=== PATIENT | female | born 1985 | race African-American/Black ===

== ENCOUNTER 2017-02-17 08:08 | Emergency (ER) | payer MEDICAID ==
[~2017-02-17] VITALS: Ht 162.6 cm; Wt 100.0 kg
[~2017-02-17 08:08] MED LIST: BACT800T5 PO; CEPH-460 PO; HYDR-3533 PO
[2017-02-17 08:11] VITALS: BP 135/83; PULSE 100; RESP 20; TEMP 98; O2SAT 100
[2017-02-17] MEDS ORDERED: IBUP800T23 PO (08:29)
[2017-02-17] MEDS ORDERED: CYCL1TAB29 PO (08:29)
--- NOTE | 2017-02-17 08:29 | PD ---
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 Reports history of low back pain with muscle spasms. Denies radiation of pain. Denies paresthesias, loss of sensation, decreased range motion, decreased strength to bilateral extremities. Denies encopresis, incontinence, saddle anesthesias. Denies fever, vomiting, abdominal pain. Denies dysuria. Denies IV drug use, cancer. Has not taken any medications or tried any treatments to relieve her symptoms. Pain is aggravated with movement. No known relieving factors. No known allergies. Has no other medical complaints. No other modifying factors or associated signs and symptoms. PFSH Past Medical History Blood Disorders: No Cancer: No Cardiovascular Problems: No Diminished Hearing: No Gastrointestinal Disorders: Yes Genitourinary: No Immune Disorder: No Musculoskeletal: No Neurologic: No Psychiatric: No Reproductive: No Respiratory: No ?: Not LMP: 02/04/17 : 4 Para: 3 Miscarriage: 1 Past Surgical History Appendectomy: Yes (10/15/09) Body Medical Devices: HX IUD Other Surgery: No Social History Alcohol Use: No Tobacco Use: No Substance Use: No Allergies-Medications (Allergen,Severity, Reaction): Coded Allergies: No Known Allergies (Verified , 02/17/17) Reported Meds & Prescriptions Reported Meds & Active Scripts Active Ibuprofen 800 Mg Tab 800 Mg PO Q6HR PRN Flexeril (Cyclobenzaprine HCl) 10 Mg Tab 10 Mg PO TID PRN Review of Systems Except as stated in HPI: all other systems reviewed are Neg Physical Exam Narrative GENERAL: Well-nourished, well-developed female patient, in no acute distress; afebrile, nontoxic-appearing SKIN: Warm and dry. HEAD: Atraumatic. Normocephalic. EYES: Pupils equal and round. No scleral icterus. No injection or drainage. ENT: Mucosa pink and moist. Airway patent. NECK: Trachea midline. CARDIOVASCULAR: Regular rate. RESPIRATORY: No accessory muscle use. GASTROINTESTINAL: Obese. MUSCULOSKELETAL: Bilateral lower extremities supple and non-tense with 2+ pedal pulses and sensory intact; with full range of motion and 5/5 strength. 2 + DTRs bilaterally. Active dorsiflexion and extension of bilateral feet. Right straight leg raise is positive for low back pain. Ambulatory in room with normal gait. Sitting up in bed at 90. No obvious deformities. No clubbing. No cyanosis. No edema. BACK: No midline point tenderness on palpation of the lumbar or thoracic spine. Tenderness on palpation of bilateral lumbar paraspinal and iliosacral area; worse on right than left. No obvious deformities. NEUROLOGICAL: Awake and alert. Oriented 3. No obvious cranial nerve deficits. Motor grossly within normal limits. Normal speech. Moves all extremities. 5/5 strength to all extremities. Sensory intact. PSYCHIATRIC: Appropriate mood and affect; insight and judgment normal. Data Data Last Documented VS Vital Signs Date Time Temp Pulse Resp B/P Pulse Ox O2 Delivery O2 Flow Rate FiO2 02/17/17 08:11 98.0 100 20 135/83 100 Room Air Orders Methocarbamol (Robaxin) (02/17/17 08:30) Ibuprofen (Motrin) (02/17/17 08:30) MDM Medical Decision Making Medical Screen Exam Complete: Yes Emergency Medical Condition: Yes Medical Record Reviewed: Yes Differential Diagnosis Back strain, low back pain, muscle spasms Narrative Course 31-year-old female physical exam and history of present illness consistent with acute low back pain and low back strain. Denies encopresis, incontinence, saddle anesthesias. Denies IV drug use or cancer. No midline point tenderness on palpation of the lumbar spine. Patient is able to drain the room with normal gait. Afebrile and nontoxic-appearing. Denies fever, vomiting. Robaxin and ibuprofen administered in the ER. Flexeril and ibuprofen prescribed for home. Work release provided. Patient verbalizes understanding and agreement with treatment plan. Patient is medically cleared and stable for discharge. Discussed reasons to return to the emergency department. Instructed patient to follow up with primary care provider. Patient agrees with treatment plan. The patients vital signs are stable and the patient is stable for outpatient follow-up and treatment. Patient discharged home, stable and in no acute distress. Diagnosis Primary Impression: Low back pain Qualified Code: M54.5 - Bilateral low back pain without sciatica, unspecified chronicity Additional Impression: Low back strain Qualified Code: S39.012A - Low back strain, initial encounter Referrals: Primary Care Physician Patient Instructions: Acute Low Back Pain (ED), General Instructions, Low Back Strain (ED), Lower Back Exercises (ED) Departure Forms: Tests/Procedures, Work Release Enter return to work date: Feb 21, 2017 Additional Instructions: Tylenol or ibuprofen as directed and as needed for pain Flexeril as prescribed and as needed for muscle spasms Heating pad and/or ice to affected area to reduce pain Avoid aggravating activities; increase activity as tolerated Follow-up with primary care provider Return to emergency department immediately with worsening of symptoms Med/Other Pt SpecificInfo: Prescription(s) given Scripts Ibuprofen 800 Mg [id number] Mg PO Q6HR PRN (PAIN) #30 TAB Ref 0 Prov:Michelle Collier 02/17/17 Cyclobenzaprine (Flexeril)10 Mg Tab10 Mg PO TID PRN (MUSCLE SPASM) #30 TAB Ref 0 Prov:Michelle Collier 02/17/17 Disposition: 01 DISCHARGE HOME Condition: Stable Michelle Collier Feb 17, 2017 08:29
[2017-02-17] MEDS ORDERED: METHOCARBAMOL 500 MG TAB PO ONE (08:30)
[2017-02-17] MEDS ORDERED: IBUPROFEN 800 MG TAB PO ONE (08:30)
== END 2017-02-17 09:22 | disposition home or self-care (01) ==
LOC: NEPK 08:08
DX: S39.012A Strain of muscle, fascia and tendon of lower back, initial encounter (principal); X50.9XXA Other and unspecified overexertion or strenuous movements or postures, initial encounter; Y93.89 Activity, other specified
CPT/HCPCS: 99283

== ENCOUNTER 2017-07-28 07:31 | Emergency (ER) | payer MEDICAID ==
[~2017-07-28] VITALS: Ht 162.6 cm; Wt 100.0 kg
[~2017-07-28 07:31] MED LIST changes: -BACT800T5 PO; -CEPH-460 PO; +CYCL10TA PO; -HYDR-3533 PO; +IBUP1TAB7 PO
[2017-07-28 07:32] VITALS: BP 137/79; PULSE 91; RESP 18; TEMP 98.8; O2SAT 100
--- NOTE | 2017-07-28 07:50 | PD ---
HPI Chief Complaint: Complaint Time Seen by Provider: 07:37 Travel History International Travel<30 days: No Contact w/Intl Traveler<30days: No Traveled to known affect area: No History of Present Illness HPI 32-year-old female presents to the emergency department complaining of urinary frequency and urgency since last night. States that she had a little bit of dysuria that 2 nights ago but this has resolved. Patient denies hematuria, dysuria, malodorous urine, fever, chills, abdominal pain, pelvic pain. Denies vaginal discharge. Last menstrual period was Wednesday. Patient denies allergies to medications. States normally she has dysuria and an odor but she does not have this at this point. PFSH Past Medical History Blood Disorders: No Cancer: No Cardiovascular Problems: No Diminished Hearing: No Gastrointestinal Disorders: Yes Genitourinary: No Immune Disorder: No Musculoskeletal: No Neurologic: No Psychiatric: No Reproductive: No Respiratory: No ?: Not LMP: 07/21/17 : 4 Para: 3 Miscarriage: 1 Past Surgical History Appendectomy: Yes (10/15/09) Body Medical Devices: HX IUD Other Surgery: No Social History Alcohol Use: No Tobacco Use: No Substance Use: No Allergies-Medications (Allergen,Severity, Reaction): Coded Allergies: No Known Allergies (Verified Adverse Reaction, Unknown, 07/28/17) Reported Meds & Prescriptions Reported Meds & Active Scripts Active Metrogel Vaginal Gel (Metronidazole Vaginal Gel) 0.75 % Gel 1 Appl VAGINAL HS 10 Days Macrobid (Nitrofurantoin Monoh/Nitrofur Macro) 100 Mg Cap 100 Mg PO BID 7 Days Ibuprofen 800 Mg Tab 800 Mg PO Q6HR PRN Flexeril (Cyclobenzaprine HCl) 10 Mg Tab 10 Mg PO TID PRN Review of Systems Except as stated in HPI: all other systems reviewed are Neg Physical Exam Narrative GENERAL: Well-developed well-nourished in no apparent distress SKIN: Focused skin assessment warm/dry. HEAD: Atraumatic. Normocephalic. EYES: No scleral icterus. No injection or drainage. ENT: No nasal bleeding or discharge. NECK: Trachea midline. No JVD. CARDIOVASCULAR: Regular rate and rhythm. No murmur appreciated. RESPIRATORY: No accessory muscle use. Clear to auscultation. Breath sounds equal bilaterally. GASTROINTESTINAL: Abdomen soft, non-tender, nondistended. MUSCULOSKELETAL: No obvious deformities. No clubbing. No cyanosis. No edema. No CVA tenderness NEUROLOGICAL: Awake and alert. No obvious cranial nerve deficits. Motor grossly within normal limits. Normal speech. PSYCHIATRIC: Appropriate mood and affect; insight and judgment normal. Data Data Last Documented VS Vital Signs Date Time Temp Pulse Resp B/P (MAP) Pulse Ox O2 Delivery O2 Flow Rate FiO2 07/28/17 09:11 (98) 07/28/17 07:32 98.8 91 18 100 Room Air Orders Orders Urinalysis - C+S If Indicated (07/28/17 07:40) Urine Culture (07/28/17 07:47) Ed Discharge Order (07/28/17 08:51) Labs Laboratory Tests Test 07/28/17 07:47 Urine Color YELLOW Urine Turbidity HAZY Urine pH 6.5 Urine Specific [place] 1.027 Urine Protein TRACE mg/dL Urine Glucose (UA) NEG mg/dL Urine Ketones NEG mg/dL Urine Occult Blood TRACE Urine Nitrite NEG Urine Bilirubin NEG Urine Urobilinogen 2.0 MG/DL Urine Leukocyte Esterase LARGE Urine RBC 8 /hpf Urine WBC 21 /hpf Urine Squamous Epithelial Cells 28 /hpf Urine Bacteria RARE /hpf Urine Mucus FEW /lpf Urine Trichomonas RARE Microscopic Urinalysis Comment CULTURE INDICATED MDM Medical Decision Making Medical Screen Exam Complete: Yes Emergency Medical Condition: Yes Differential Diagnosis Urinary tract infection versus cystitis versus pyelonephritis Narrative Course 32-year-old female presents to the emergency department complaining of urinary frequency and urgency since last night. States that she had a little bit of dysuria that 2 nights ago but this has resolved. Patient denies hematuria, dysuria, malodorous urine, fever, chills, abdominal pain, pelvic pain. Last menstrual period was Wednesday. Patient denies allergies to medications. States normally she has dysuria and an odor but she does not have this at this point. Vital signs- heart rate 91, otherwise within normal limits Physical exam- no CVA tenderness, no TTP to abdominal or pelvic region Urine- consistent with UTI macrobid BID for 7 days. Advised pt to increase PO fluids. Diagnosis Primary Impression: Urinary tract infection Qualified Codes: N30.00 - Acute cystitis without hematuria Additional Impression: Trichomonas infection Referrals: Primary Care Physician Additional Instructions: Ensure proper nutrition with plenty of fluid intake. Take medication as prescribed. If your symptoms persist or worsen, return to the emergency department. Follow up with your primary care physician within 3 days. Follow up with your primary care or title i paraprofessional regarding infection Scripts Metronidazole Vaginal Gel (Metrogel Vaginal Gel) 0.75 % Gel 1 APPL VAGINAL HS for Infection for 10 Days, #1 TUBE 0 Refills Prov: Vicki Vazquez MD 07/28/17 Nitrofurantoin Monohydrate Macrocrystals (Macrobid) 100 Mg Cap 100 MG PO BID for Infection for 7 Days, #14 CAP 0 Refills Prov: Vicki Vazquez MD 07/28/17 Disposition: 01 DISCHARGE HOME Condition: Stable Bette Nuñez Jul 28, 2017 07:49
[2017-07-28 08:43] LABS: BACTERIA, URINE RARE /hpf; BLOOD, URINE TRACE (NEG); COMMENT (UR) CULTURE INDICATED; CULTURE IF INDICATED CULTURE INDICATED; GLUCOSE,URINE NEG (NEG); KETONE, URINE NEG (NEG); MUCUS URINE FEW /lpf (OCC); NITRITE,URINE NEG (NEG); PH, URINE 6.5 (5.0-8.5); SQUAMOUS EPITHELIAL CELL URINE 28 /hpf (0-5); URINE COLOR YELLOW (YELLW/STRAW)
[2017-07-28] MEDS ORDERED: MACR100C2 PO (08:46)
[2017-07-28] MEDS ORDERED: METR0.7528 VAGINAL (08:49)
== END 2017-07-28 09:12 | disposition home or self-care (01) ==
LOC: NEPD 07:31
DX: N39.0 Urinary tract infection, site not specified (principal); A59.9 Trichomoniasis, unspecified
CPT/HCPCS: 81001; 87086; 99284

== ENCOUNTER 2018-02-09 02:23 | Emergency (ER) | payer MEDICAID ==
[~2018-02-09] VITALS: Ht 167.6 cm; Wt 65.0 kg
[~2018-02-09 02:23] MED LIST changes: +MACR100C2 PO; +METR0.7528 VAGINAL
[2018-02-09 02:28] VITALS: BP 127/66; PULSE 88; RESP 20; TEMP 98.4; O2SAT 100
[2018-02-09] MEDS ORDERED: SODIUM CHLOR 0.9% 1000 ML INJ 1,000 ML IV ONE (03:30)
[2018-02-09 03:32] LABS: BILIRUBIN, URINE NEG (NEG); BLOOD, URINE NEG (NEG); GLUCOSE,URINE NEG (NEG); KETONE, URINE NEG (NEG); MUCUS URINE MANY /lpf (OCC); NITRITE,URINE NEG (NEG); SQUAMOUS EPITHELIAL CELL URINE 11 /hpf (0-5); URINE COLOR YELLOW (YELLW/STRAW); URINE LEUKOCYTE ESTERASE MOD (NEG)
--- NOTE | 2018-02-09 03:37 | PD ---
HPI Chief Complaint: General Weakness Time Seen by Provider: 02:39 Travel History International Travel<30 days: No Contact w/Intl Traveler<30days: No Traveled to known affect area: No History of Present Illness HPI The patient is a 32 year old female who presents to the [facility] emergency department with a history of 2 days of increasing fatigue, sleeping frequently, bloated sensation in the abdomen, and urinary frequency. She reports her last menstrual cycle was at the beginning of January. She reports that she is sexually active and does not use any form of control. She last had an IUD for control 3 years ago. She denies having any dysuria, urinary urgency, or flank pain. She does report having some low back pain in the center of her low back. She is a with 1 miscarriage previously. On review of systems otherwise, she denies having any known recent fevers, cough, congestion, neck pain, chest pain, shortness of breath, abdominal pain, vomiting , diarrhea, or neurologic symptoms. She denies having any unusual vaginal bleeding or discharge. [facility] [place] Past Medical History Narrative Medical The patient's past medical history is reportedly none. Blood Disorders: No Cancer: No Cardiovascular Problems: No Diminished Hearing: No Gastrointestinal Disorders: Yes Genitourinary: No Immune Disorder: No Implanted Vascular Access Dvce: Yes Musculoskeletal: No Neurologic: No Psychiatric: No Reproductive: No Respiratory: No Immunizations Current: Yes Tetanus Vaccination: Unknown Influenza Vaccination: Yes ?: Unknown LMP: 4-30-18 : 4 Para: 3 Miscarriage: 1 Past Surgical History Narrative Surgical The patient's past surgical history is significant for an appendectomy. Appendectomy: Yes (10/15/09) Body Medical Devices: HX IUD Other Surgery: No Social History Alcohol Use: Yes ([facility]) Tobacco Use: Yes (1/3 pack a day ) Substance Use: No Allergies-Medications (Allergen,Severity, Reaction): Coded Allergies: No Known Allergies (Verified Adverse Reaction, Unknown, 02/09/18) Reported Meds & Prescriptions Reported Meds & Active Scripts Active No Active Prescriptions or Reported Medications Review of Systems Except as stated in HPI: all other systems reviewed are Neg General / Constitutional: No: Fever Eyes: No: Visual changes HENT: No: Headaches Cardiovascular: No: Chest Pain or Discomfort Respiratory: No: Shortness of Breath Gastrointestinal: Positive: Abdominal Pain (Abdominal bloating) Genitourinary: Positive: Frequency, No: Urgency, Dysuria Musculoskeletal: No: Pain Skin: No Rash Neurologic: Positive: Weakness (Generalized fatigue), No: Focal Abnormalities, Change in Mentation, Slurred Speech, Sensory Disturbance Psychiatric: No: Depression Endocrine: No: Polydipsia Hematologic/Lymphatic: No: Easy Bruising Physical Exam Narrative General: The patient is a well-developed well-nourished female in no acute distress. Head and Neck exam: Head is normocephalic atraumatic. Eyes: EOMI, pupils are equal round and reactive to light. Nose: Midline septum with pink mucous membranes Mouth: Dentition unremarkable. Moist mucus membranes. Posterior oropharynx is not erythematous. No tonsillar hypertrophy. Uvula midline. Airway patent. Neck: No palpable lymphadenopathy. No nuchal rigidity. No thyromegaly. Cardiovascular: Regular rate and rhythm without murmurs, gallops, or rubs. Lungs: Clear to auscultation bilaterally. No wheezes, rhonchi, or rales. Abdomen: Soft, without tenderness to palpation in all 4 quadrants of the abdomen. No guarding, rebound, or rigidity. Normal bowel sounds are audible. No tenderness on palpation of McBurney's point. Extremities: No clubbing, cyanosis, or edema. 2+ pulses in all 4 extremities. No calf tenderness on palpation. Back: No spinous process tenderness to palpation. No costovertebral angle tenderness to palpation. Neurologic Exam: Grossly nonfocal. Skin Exam: No rash noted. Intact skin that is warm and dry. Data Data Last Documented VS Vital Signs Date Time Temp Pulse Resp B/P (MAP) Pulse Ox O2 Delivery O2 Flow Rate FiO2 02/09/18 02:28 98.4 88 20 127/66 (86) 100 Orders Orders Urinalysis - C+S If Indicated (02/09/18 02:42) Ed Urine Pregnancytest Poc (02/09/18 02:42) Complete Blood Count With Diff (02/09/18 03:16) Basic Metabolic Panel (Bmp) (02/09/18 03:16) Beta Hcg (Quant/Titer) (02/09/18 03:16) Iv Access Insert/Monitor (02/09/18 03:16) Ecg Monitoring (02/09/18 03:16) Oximetry (02/09/18 03:16) Sodium Chlor 0.9% 1000 Ml Inj (Ns 1000 M (02/09/18 03:30) Labs Laboratory Tests Test 02/09/18 03:00 02/09/18 03:27 Urine Color YELLOW Urine Turbidity HAZY Urine pH 6.0 Urine Specific [place] 1.027 Urine Protein TRACE mg/dL Urine Glucose (UA) NEG mg/dL Urine Ketones NEG mg/dL Urine Occult Blood NEG Urine Nitrite NEG Urine Bilirubin NEG Urine Urobilinogen LESS THAN 2.0 MG/DL Urine Leukocyte Esterase MOD Urine RBC 1 /hpf Urine WBC 1 /hpf Urine Squamous Epithelial Cells 11 /hpf Urine Mucus MANY /lpf Microscopic Urinalysis Comment CULT NOT INDICATED White Blood Count 7.3 TH/MM3 Red Blood Count 4.81 MIL/MM3 Hemoglobin 12.9 GM/DL Hematocrit 39.6 % Mean Corpuscular Volume 82.2 FL Mean Corpuscular Hemoglobin 26.8 PG Mean Corpuscular Hemoglobin Concent 32.6 % Red Cell Distribution Width 14.8 % Platelet Count 347 TH/MM3 Mean Platelet Volume 7.1 FL Neutrophils (%) (Auto) 49.5 % Lymphocytes (%) (Auto) 40.8 % Monocytes (%) (Auto) 6.2 % Eosinophils (%) (Auto) 2.8 % Basophils (%) (Auto) 0.7 % Neutrophils # (Auto) 3.6 TH/MM3 Lymphocytes # (Auto) 3.0 TH/MM3 Monocytes # (Auto) 0.5 TH/MM3 Eosinophils # (Auto) 0.2 TH/MM3 Basophils # (Auto) 0.0 TH/MM3 CBC Comment DIFF FINAL Differential Comment Blood Urea Nitrogen 8 MG/DL Creatinine 0.62 MG/DL Random Glucose 98 MG/DL Calcium Level 8.6 MG/DL Sodium Level 138 MEQ/L Potassium Level 3.9 MEQ/L Chloride Level 104 MEQ/L Carbon Dioxide Level 26.5 MEQ/L Anion Gap 8 MEQ/L Estimat Glomerular Filtration Rate 136 ML/MIN Human Chorionic Gonadotropin, Quant 69 MIU/ML [facility] Medical Decision Making Medical Screen Exam Complete: Yes Emergency Medical Condition: Yes Medical Record Reviewed: Yes Differential Diagnosis , versus urinary tract infection, versus diabetes Narrative Course During the course of the patient's emergency department visit, the patient's history, examination, and differential diagnosis were reviewed with the patient. The patient was placed on a shelter monitor with oximetry and frequent blood pressure monitoring. The patient had IV access obtained and blood work sent for analysis. A bedside test was done and was faintly positive. The patient was initially provided normal saline 1 L IV fluid bolus. The patient's laboratory studies were reviewed and remarkable for a white count of 7.3, hemoglobin 12.9, platelets 347 with a normal differential, basic metabolic profile within normal limits, quantitative beta hCG is 69, urinalysis shows moderate leukocyte esterase 1 WBC, 11 squamous epithelial cells, many mucus, otherwise unremarkable, culture not indicated. The patient symptoms are consistent with an early . The patient will be discharged home to follow-up with an FERMENTER. The patient is resting comfortably and feels better, is alert and in no distress. The patient's results and examination findings were discussed with the patient. The repeat examination is unremarkable and benign. The history, exam, diagnostic testing, and current condition do not suggest any significant pathology to warrant further testing, continued ED treatment, admission, or surgical evaluation at this point. The vital signs have been stable. The patient does not have uncontrollable pain, intractable vomiting, or other significant symptoms. The patient's condition is stable and appropriate for discharge. The patient will pursue further outpatient evaluation with a primary care physician or other designated or consulting physician as indicated in the discharge instructions. The patient is instructed to report back to the emergency department immediately for reexamination in the mean time if he/ she develops any new or worsening signs or symptoms. The patient expressed understanding and was agreeable with this plan. Diagnosis Primary Impression: Early stage of Referrals: Blas Proctor MD 2 days [facility] 2 days Patient Instructions: First Trimester (ED), General Instructions Med/Other Pt SpecificInfo: No Meds Exist/No RX given Scripts No Active Prescriptions or Reported Meds Disposition: 01 DISCHARGE HOME Condition: Stable Liz Dockery MD Feb 09, 2018 03:37
[2018-02-09 03:47] LABS: AUTOMATED NEUTROPHIL # 3.6 TH/MM3 (1.8-7.7); BASOPHIL % 0.7 % (0.0-2.0); EOSINOPHIL # 0.2 TH/MM3 (0-0.4); EOSINOPHIL % 2.8 % (0.0-4.0); HEMATOCRIT 39.6 % (35.0-46.0); HEMOGLOBIN 12.9 GM/DL (11.6-15.3); LYMPH % 40.8 % (9.0-44.0); MEAN CELL VOLUME 82.2 FL (80.0-100.0); MEAN CORPUSCULAR HEMOGLOBIN 26.8 PG (27.0-34.0); MEAN CORPUSCULAR HGB CONC 32.6 % (32.0-36.0); MEAN PLATELET VOLUME 7.1 FL (7.0-11.0); MONO % 6.2 % (0.0-8.0); MONOCYTE # 0.5 TH/MM3 (0-0.9); NEUT % 49.5 % (16.0-70.0); PLATELET COUNT 347 TH/MM3 (150-450); RED BLOOD COUNT 4.81 MIL/MM3 (4.00-5.30); RED CELL DISTRIBUTION WIDTH 14.8 % (11.6-17.2); WHITE BLOOD COUNT 7.3 TH/MM3 (4.0-11.0)
[2018-02-09 03:56] LABS: BICARBONATE 26.5 MEQ/L (21.0-32.0); CALCIUM 8.6 MG/DL (8.5-10.1); CREATININE 0.62 MG/DL (0.50-1.00)
== END 2018-02-09 05:33 | disposition home or self-care (01) ==
LOC: NEPC 02:23
DX: O26.891 Other specified pregnancy related conditions, first trimester (principal); R53.1 Weakness; O99.331 Smoking (tobacco) complicating pregnancy, first trimester; F17.200 Nicotine dependence, unspecified, uncomplicated; Z3A.00 Weeks of gestation of pregnancy not specified
CPT/HCPCS: 80048; 81001; 84702; 84703; 85025; 99284; J7030

== ENCOUNTER 2018-03-01 12:19 | Emergency (ER) | payer MEDICAID ==
[~2018-03-01] VITALS: Ht 162.6 cm; Wt 110.0 kg
[2018-03-01 12:24] VITALS: BP 142/76; PULSE 89; RESP 16; TEMP 97.9; O2SAT 99
== END 2018-03-01 15:19 | disposition left against medical advice (07) ==
LOC: NED 12:19
DX: O46.91 Antepartum hemorrhage, unspecified, first trimester (principal); Z3A.01 Less than 8 weeks gestation of pregnancy; Z53.21 Procedure and treatment not carried out due to patient leaving prior to being seen by health care provider
CPT/HCPCS: 99281